=== PATIENT | male | born 1955 | race Caucasian/White ===

== ENCOUNTER 2020-01-30 17:28 | Inpatient (IN) | payer MEDICAID, OTHER ==
[~2020-01-30] VITALS: Ht 172.7 cm; Wt 105.7 kg
[2020-01-30] MEDS ORDERED: ACETAMINOPHEN 325 MG TAB PO ONE (18:00)
[2020-01-30] MEDS ORDERED: SODIUM CHLORIDE 0.9% 1,000 ML IVB ONE (18:01)
[2020-01-30] MEDS ORDERED: CLINDAMYCIN 600MG IV 50 ML IV ONE (18:15)
[2020-01-30] MEDS ORDERED: SODIUM CHLORIDE 0.9% 1,000 ML IV ONE ×2 (18:15→20:05)
[2020-01-30 19:01] LABS: Basophils # (auto) 0 10 ^3/uL (0-0.2); Basophils % (auto) 0.2 % (0.0-2.0); Eosinophils # (auto) 0 10 ^3/uL (0-0.8); Eosinophils % (auto) 0.3 % (0.0-7.0); Hematocrit 31.1 % (41.0-53.0); Hemoglobin 10.2 g/dL (13.5-17.5); Lymphocytes # (auto) 1.1 10 ^3/uL (0.4-5.4); Lymphocytes % (auto) 6.8 % (10.0-50.0); Mean Corpuscular Hemoglobin 29.2 pg (28.0-32.0); Mean Corpuscular Hgb Conc. 32.6 g/dL (32.0-36.0); Mean Corpuscular Volume 89.7 fL (80.0-100.0); Monocytes # (auto) 0.7 10 ^3/uL (0-1.3); Monocytes % (auto) 4.7 % (0.0-12.0); Platelet Count (auto) 399 10^3/uL (140-450); Red Blood Cells 3.47 10^6/uL (4.5-5.90); Red Cell Distribution Width 14.9 % (11.8-14.3); White Blood Cell 15.9 10^3/uL (4.4-10.8)
[2020-01-30 19:17] LABS: BUN/Creatinine Ratio 24.1; INR 1.09 (0.9-1.15); Partial Thromboplastin Time 32.4 sec (23.0-31.2)
[2020-01-30 19:21] LABS: Bilirubin, Total 0.6 mg/dL (0.2-1.0); Calcium 8.2 mg/dL (8.5-10.1); Total Protein 8.4 g/dL (6.4-8.2)
[2020-01-30 19:46] LABS: Magnesium 0.7 mg/dL (1.6-2.6)
[2020-01-30] MEDS ORDERED: InsuLIN R (HUMAN) 100 UNITS in SODIUM CHL 0.9% 99 ML IV SCH (19:53)
[2020-01-30] MEDS ORDERED: SODIUM CHLORIDE 0.9% 1,000 ML IV SCH ×2 (19:53→23:53)
[2020-01-30] MEDS ORDERED: DEXTROSE (50%) 50ML SYRG IV PRN ×2 (20:00→20:15)
[2020-01-30] MEDS ORDERED: MAGNESIUM SULFATE 1GM/100ML 100 ML IV SCH (20:00)
[2020-01-30] MEDS ORDERED: LACTATED RINGER'S 1,000 ML IV ONE (20:00)
[2020-01-30] MEDS ORDERED: MAGNESIUM OXIDE 400 MG TAB PO ONE (20:00)
[2020-01-30] MEDS ORDERED: PIPERACILLIN-TAZOB 3.375GM 100 ML IV ONE (20:00)
[2020-01-30] MEDS ORDERED: cefTRIAXone 1GM/50ML D5W 50 ML IV ONE (20:00)
[2020-01-30] MEDS ORDERED: MORPHINE SULF INJ 2 MG/ML SYRINGE 1ML IV PRN (20:15)
[2020-01-30] MEDS ORDERED: NITROGLYCERIN 0.4 MG SL TAB SL PRN (20:15)
[2020-01-30] MEDS ORDERED: hydrALAZINE HCL 25 MG TAB PO ONE (20:15)
[2020-01-30] MEDS ORDERED: METOPROLOL SUCCINATE XL 50 MG TAB PO ONE (20:15)
[2020-01-30] MEDS ORDERED: VANCOMYCIN PER PHARMACY 0 MG IV SCH ×2 (20:30)
[2020-01-30] MEDS ORDERED: ACCU-CHEK COMFORT CURVE STRIP VI SCH (21:00)
[2020-01-30] MEDS: MAGNESIUM SULFATE 1GM/100ML 100 ML IV SCH ×2 (21:03→23:58)
[2020-01-30 21:32] LABS: INR 1.11 (0.9-1.15); Partial Thromboplastin Time 33.3 sec (23.0-31.2)
[2020-01-30] MEDS ORDERED: VANCOMYCIN 1GM/250ML 250 ML IV ONE (23:00)
[2020-01-30 23:12] LABS: Creatine Kinase IFCC 54 U/L (39-308)
[2020-01-30] MEDS: FAMOTIDINE (10MG/ML) 2ML VL IV SCH (23:58)
[2020-01-31] VITALS (7 sets, daily range): BP systolic 124–157; BP diastolic 49–78
[2020-01-31] MEDS ORDERED: hydrALAZINE HCL 25 MG TAB PO PRN
--- NOTE | 2020-01-31 00:45 | NUR ---
Telemetry admit from ER JOSE TREVIÑO admitted to Telemetry unit after SBAR received. Patient oriented to Grace Lopez, primary RN, unit, room, bed, and unit policies regarding patient care and visiting hours. Patient now on continuous telemetry monitoring, tele box # [id number] and telemetry reading on arrival to unit is . Patient placed on bedside oxygen, weighed by bedscale and encouraged to call if they need something. All questions and concerns addressed, patient verbalized understanding. Note:
[2020-01-31] MEDS: MAGNESIUM SULFATE 1GM/100ML 100 ML IV SCH ×2 (01:24→02:47)
[2020-01-31] MEDS: ACCU-CHEK COMFORT CURVE STRIP VI SCH ×5 (01:28→23:25)
[2020-01-31] MEDS ORDERED: SODIUM CHLORIDE 0.9% 1,000 ML IV SCH (01:53)
[2020-01-31] MEDS ORDERED: LORazepam 2MG/ML-1ML VIAL IV PRN (02:00)
[2020-01-31 02:15] LABS: BUN/Creatinine Ratio 21.8; Potassium 4.7 mmol/L (3.5-5.1)
[2020-01-31 02:22] LABS: Urine Bacteria FEW /hpf (None Seen); Urine Blood TRACE /uL (Negative); Urine Hyaline Cast FEW /lpf (0 - 2); Urine Mucus FEW (None Seen); Urine Specific Gravity 1.016 (1.001-1.035); Urine WBC 7 /hpf (0 - 3)
[2020-01-31 02:29] LABS: Calcium 8.2 mg/dL (8.5-10.1)
[2020-01-31] MEDS ORDERED: MAGNESIUM SULFATE 1GM/100ML 100 ML IV ONE (02:46)
[2020-01-31] MEDS ORDERED: NIFEdipine ER 30 MG TAB PO ONE (03:15)
[2020-01-31] MEDS ORDERED: LISINOPRIL 20 MG TAB PO ONE (03:15)
[2020-01-31] MEDS: SODIUM CHLORIDE 0.9% 1,000 ML IV SCH ×3 (03:49→23:15)
[2020-01-31] MEDS: PIPERACILLIN-TAZOB 3.375GM 100 ML IV SCH ×4 (05:15→17:46)
[2020-01-31] MEDS: InsuLIN REG 1unit/0.01ml Soln (100units/ml) SC SCH ×5 (05:44→23:26)
[2020-01-31 06:51] LABS: Basophils # (auto) 0 10 ^3/uL (0-0.2); Basophils % (auto) 0.2 % (0.0-2.0); Eosinophils # (auto) 0.1 10 ^3/uL (0-0.8); Eosinophils % (auto) 0.9 % (0.0-7.0); Hematocrit 31.8 % (41.0-53.0); Hemoglobin 9.9 g/dL (13.5-17.5); Lymphocytes # (auto) 1.6 10 ^3/uL (0.4-5.4); Lymphocytes % (auto) 10.4 % (10.0-50.0); Mean Corpuscular Hemoglobin 29.2 pg (28.0-32.0); Mean Corpuscular Hgb Conc. 31.1 g/dL (32.0-36.0); Mean Corpuscular Volume 93.8 fL (80.0-100.0); Monocytes % (auto) 6.4 % (0.0-12.0); Neutrophils # (auto) 12.8 10 ^3/uL (1.6-8.6); Neutrophils % (auto) 82.1 % (37.0-80.0); Platelet Count (auto) 410 10^3/uL (140-450); Red Blood Cells 3.39 10^6/uL (4.5-5.90); Red Cell Distribution Width 15.6 % (11.8-14.3); White Blood Cell 15.6 10^3/uL (4.4-10.8)
--- NOTE | 2020-01-31 07:00 | NUR ---
OPENING SHIFT NOTE RECEIVED REPORT ON THE PATIENT. AWAKE LYING IN BED. PATIENT SHOWS NO SIGNS OF DISTRESS AT THIS TIME. DISCUSSED THE PLAN OF CARE WITH THE PATIENT. BED IN LOWEST POSITION, SIDE RAILS UP X2, AND THE CALL LIGHT IS WITHIN REACH.
[2020-01-31 07:14] LABS: Potassium 4.4 mmol/L (3.5-5.1)
[2020-01-31 07:23] LABS: BUN/Creatinine Ratio 21.2; Calcium 8.3 mg/dL (8.5-10.1); Magnesium 3.3 mg/dL (1.6-2.6)
[2020-01-31] MEDS: VANCOMYCIN 1GM/250ML 250 ML IV SCH ×2 (10:30→23:23)
[2020-01-31] MEDS: FAMOTIDINE (10MG/ML) 2ML VL IV SCH ×2 (10:31→23:24)
[2020-01-31] MEDS: ASPirin 81 mg TAB PO SCH (10:31)
[2020-01-31] MEDS: ENOXAPARIN SOD 40 MG/0.4 ML SYRINGE SC SCH (10:31)
[2020-01-31] MEDS: MAGNESIUM OXIDE 400 MG TAB PO SCH ×2 (10:31→23:25)
[2020-01-31] MEDS: METOPROLOL TARTRATE 25 MG TAB PO SCH ×2 (10:31→23:25)
[2020-01-31 11:24] LABS: Cholesterol 124 mg/dL (< 200); HDL Cholesterol 20 mg/dL (40-59); LDL Cholesterol 71 mg/dL (< 100); Triglycerides 138 mg/dL (< 150)
--- NOTE | 2020-01-31 12:30 | NUR ---
WOUND CARE NOTE: IN TO SEE PATIENT AT THIS TIME PER WOUND CARE CONSULT REQUEST. PATIENT RECENTLY ADMITTED TO [facility] WITH DIAGNOSIS OF SEVERE SEPSIS, LLE GANGRENE, NON HEALING WOUNDS. CURRENT CHIN SCORE IS 17. WOUND PHOTOS TAKEN UPON ADMIT BY BEDSIDE NURSE FOR REFERENCE. PODIATRY CONSULT IS PENDING. PATIENT IS NOTED TO HAVE BLACK ESCHAR UNSTAGEABLE PRESSURE INJURIES TO BILATERAL HEELS, DFU TO THE LEFT PLANTAR FOOT, AND OBVIOUS WOUND INFECTION WITH ERYTHEMA NOTED TO LEFT ANKLE TO DORSAL AND PLANTAR SURFACE OF THE FOOT. NO OPEN WOUNDS NOTED. BOTH HEELS COVERED WITH BLACK ESCHAR, CALLOUSED PERIWOUND NOTED. DFU IS COVERED WITH BLACK ESCHAR, LEFT ANKLE HAS EARLY BLISTER FORMING. ENTIRE LEFT FOREFOOT IS EDEMATOUS, INDURATED, BRIGHT RED WITH OBVIOUS INFECTION. NO OTHER WOUND ISSUES NOTED AT THIS TIME. RECOMMEND: SKIN/WOUND CARE PLAN, FREQUENT TURN SCHEDULE Q 2 HOURS, PRN CONDITION PERMITS WITH PRESSURE REDISTRIBUTION USING PILLOWS/WEDGES, BID APPLICATIONS WITH BETADINE WASH TO BILATERAL HEEL ESCHAR WOUNDS, DIETARY CONSULT, CONTINUED MONITORING BY WOUND CARE TEAM. WILL DEFER ALL OTHER WOUND CARE ORDERS TO DR. HOGAN/CORE MAKER. Addendum: 01/31/20 at 1927 by Kristen Clancy RN Amended: Links added.
--- NOTE | 2020-01-31 12:56 | NUR ---
DR COTTO AT BEDSIDE. NEW ORDERS RECEIVED.
--- NOTE | 2020-01-31 13:00 | NUR ---
DR HOGAN AT BEDSIDE. NEW ORDERS RECEIVED.
[2020-01-31] MEDS ORDERED: DEXTROSE (50%) 50ML SYRG IV PRN (13:30)
[2020-01-31 14:45] LABS: BUN/Creatinine Ratio 21.8; Calcium 8.2 mg/dL (8.5-10.1); Potassium 3.9 mmol/L (3.5-5.1)
--- NOTE | 2020-01-31 15:58 | NUR ---
PATIENT DOWN TO MRI. NO SIGNS OF DISTRESS AT THIS TIME.
--- NOTE | 2020-01-31 19:35 | NUR ---
ENDORSED CARE TO ELLIOT GLROIA. PATIENT SHOWS NO SIGNS OF DISTRESS AT THIS TIME.
[2020-01-31] MEDS: ATORVASTATIN 20 MG TAB PO SCH (23:24)
[2020-02-01] MEDS: PIPERACILLIN-TAZOB 3.375GM 100 ML IV SCH ×5 (01:05→23:39)
[2020-02-01 05:00] VITALS: BP 140/60
[2020-02-01 06:10] LABS: Basophils # (auto) 0.1 10 ^3/uL (0-0.2); Basophils % (auto) 0.5 % (0.0-2.0); Eosinophils # (auto) 0.1 10 ^3/uL (0-0.8); Eosinophils % (auto) 1.1 % (0.0-7.0); Hemoglobin 9.3 g/dL (13.5-17.5); Lymphocytes # (auto) 1.1 10 ^3/uL (0.4-5.4); Lymphocytes % (auto) 9.3 % (10.0-50.0); Mean Corpuscular Hemoglobin 29.2 pg (28.0-32.0); Mean Corpuscular Hgb Conc. 32.2 g/dL (32.0-36.0); Mean Corpuscular Volume 90.5 fL (80.0-100.0); Monocytes # (auto) 0.7 10 ^3/uL (0-1.3); Monocytes % (auto) 5.9 % (0.0-12.0); Neutrophils # (auto) 10.2 10 ^3/uL (1.6-8.6); Neutrophils % (auto) 83.2 % (37.0-80.0); Platelet Count (auto) 393 10^3/uL (140-450); Red Cell Distribution Width 14.7 % (11.8-14.3); White Blood Cell 12.2 10^3/uL (4.4-10.8)
[2020-02-01 06:26] LABS: Albumin 1.6 g/dL (3.4-5.0)
[2020-02-01 06:32] LABS: BUN/Creatinine Ratio 21.8; Bilirubin, Total 0.7 mg/dL (0.2-1.0); Total Protein 7.7 g/dL (6.4-8.2)
[2020-02-01] MEDS: ACCU-CHEK COMFORT CURVE STRIP VI SCH ×4 (06:33→23:39)
[2020-02-01] MEDS: InsuLIN REG 1unit/0.01ml Soln (100units/ml) SC SCH ×5 (06:37→23:38)
[2020-02-01 08:36] VITALS: BP 146/71
--- NOTE | 2020-02-01 09:31 | NUR ---
DOMENICO CORE SHAPER AT BEDSIDE. NEW ORDERS RECEIVED. PER DOMENICO "FANOUS CAN INTERVENE FIRST BEFORE ANY CARDIO INTERVENTIONS. PATIENT IS CLEARED BY CARDIO".
[2020-02-01] MEDS: MAGNESIUM OXIDE 400 MG TAB PO SCH ×2 (10:00→22:43)
[2020-02-01] MEDS: SODIUM CHLORIDE 0.9% 1,000 ML IV SCH ×2 (10:15→19:15)
[2020-02-01] MEDS: FAMOTIDINE (10MG/ML) 2ML VL IV SCH ×2 (10:15→22:44)
[2020-02-01] MEDS: VANCOMYCIN 1GM/250ML 250 ML IV SCH ×2 (10:15→22:44)
[2020-02-01] MEDS: ASPirin 81 mg TAB PO SCH (10:16)
[2020-02-01] MEDS: METOPROLOL TARTRATE 25 MG TAB PO SCH ×2 (10:16→22:44)
[2020-02-01] MEDS: NIFEdipine ER 30 MG TAB PO SCH (10:20)
[2020-02-01] MEDS: LISINOPRIL 20 MG TAB PO SCH (10:21)
[2020-02-01] MEDS: ENOXAPARIN SOD 40 MG/0.4 ML SYRINGE SC SCH (10:21)
--- NOTE | 2020-02-01 11:55 | NUR ---
Nutrition Consult Consider MVI and Vitamin C 500 mg BID for wound healing Consider adding prostat 1pkt BID if alb continues to trend down Est energy needs 0758-5534 kcal (14-18 kcal/kg BW 106.4kg) Est protein needs 70-91g (1-1.3g/kg IBW 70kg) Will reassess prn. Addendum: 02/01/20 at [address] Amended: Links added.
[2020-02-01 13:00] VITALS: BP 137/74
--- NOTE | 2020-02-01 16:16 | NUR ---
DR COTTO AT BEDSIDE. NEW ORDERS RECEIVED.
[2020-02-01 17:00] VITALS: BP 129/70
--- NOTE | 2020-02-01 19:00 | NUR ---
Opening Shift Note Assumed care of patient, awake and alert. No S/S of distress/SOB or pain. Safety measures in place bed in lowest position, side rails up x2, fall alarm on, and call light within reach. Instructed on POC and to call for assist PRN, will continue to monitor for changes Q1hr and PRN.
[2020-02-01 21:50] VITALS: BP 145/72
[2020-02-01] MEDS: ATORVASTATIN 20 MG TAB PO SCH (22:44)
[2020-02-01] MEDS: INSULIN LANTUS (GLARGINE) 1 /0.01ml (100units/ml) SC SCH (22:53)
--- NOTE | 2020-02-01 23:05 | NUR ---
Received report from Gael Best, to assume the care.
--- NOTE | 2020-02-01 23:10 | NUR ---
Opening Shift Note Assumed care of patient, awake and alert. No S/S of distress/SOB or pain. Instructed on POC and to call for assist PRN, will continue to monitor for changes Q1hr and PRN.
--- NOTE | 2020-02-02 01:00 | NUR ---
Both side of the heels wash with Povidine swab and let it dry exposed to air.
[2020-02-02] MEDS: PIPERACILLIN-TAZOB 3.375GM 100 ML IV SCH ×3 (05:14→18:10)
[2020-02-02 05:27] VITALS: BP 132/63
[2020-02-02] MEDS: InsuLIN REG 1unit/0.01ml Soln (100units/ml) SC SCH ×4 (05:50→23:02)
[2020-02-02] MEDS: ACCU-CHEK COMFORT CURVE STRIP VI SCH ×3 (05:51→17:41)
[2020-02-02] MEDS: SODIUM CHLORIDE 0.9% 1,000 ML IV SCH ×2 (06:10→17:41)
[2020-02-02 07:15] LABS: Basophils # (auto) 0 10 ^3/uL (0-0.2); Basophils % (auto) 0.3 % (0.0-2.0); Eosinophils # (auto) 0.1 10 ^3/uL (0-0.8); Lymphocytes # (auto) 1.5 10 ^3/uL (0.4-5.4); Nucleated Red Blood Cells % 0.1 %; White Blood Cell 11.6 10^3/uL (4.4-10.8)
[2020-02-02 07:19] LABS: Hematocrit 27.3 % (41.0-53.0); Hemoglobin 9.1 g/dL (13.5-17.5); Lymphocytes % (auto) 13.2 % (10.0-50.0); Mean Corpuscular Hemoglobin 29.5 pg (28.0-32.0); Mean Corpuscular Hgb Conc. 33.3 g/dL (32.0-36.0); Mean Corpuscular Volume 88.7 fL (80.0-100.0); Monocytes # (auto) 0.8 10 ^3/uL (0-1.3); Neutrophils # (auto) 9.1 10 ^3/uL (1.6-8.6); Neutrophils % (auto) 78.5 % (37.0-80.0); Platelet Count (auto) 449 10^3/uL (140-450); Red Blood Cells 3.08 10^6/uL (4.5-5.90); Red Cell Distribution Width 14.5 % (11.8-14.3)
--- NOTE | 2020-02-02 07:30 | NUR ---
Opening Shift Note Assuming care of patient at this time. Patient is awake and alert. Patient denies pain. Patient shows no signs or symptoms of distress or shortness of breath. Bed is locked and lowered with side rails up x2. Instructed patient on the plan of care for today and to call for assistance as needed. Call light within reach. Will continue to round hourly and as needed.
[2020-02-02 07:32] LABS: Albumin 1.6 g/dL (3.4-5.0); Calcium 8.1 mg/dL (8.5-10.1); Potassium 3.6 mmol/L (3.5-5.1)
--- NOTE | 2020-02-02 07:32 | NUR ---
Care report given to David Stuart, bed alarm on, patient is resting no discomfort.
[2020-02-02 07:37] LABS: Bilirubin, Total 0.6 mg/dL (0.2-1.0); Total Protein 7.8 g/dL (6.4-8.2)
[2020-02-02 09:00] VITALS: BP 156/72
[2020-02-02] MEDS: MAGNESIUM OXIDE 400 MG TAB PO SCH ×2 (10:09→22:50)
[2020-02-02] MEDS: ASPirin 81 mg TAB PO SCH (10:10)
[2020-02-02] MEDS: NIFEdipine ER 30 MG TAB PO SCH (10:10)
[2020-02-02] MEDS: LISINOPRIL 20 MG TAB PO SCH (10:10)
[2020-02-02] MEDS: FAMOTIDINE (10MG/ML) 2ML VL IV SCH ×2 (10:11→22:48)
[2020-02-02] MEDS: METOPROLOL TARTRATE 25 MG TAB PO SCH ×2 (10:11→22:56)
[2020-02-02] MEDS: VANCOMYCIN 1GM/250ML 250 ML IV SCH ×2 (10:11→22:32)
[2020-02-02] MEDS: ENOXAPARIN SOD 40 MG/0.4 ML SYRINGE SC SCH (10:12)
[2020-02-02 13:00] VITALS: BP 156/70
[2020-02-02 17:07] VITALS: BP 142/64
--- NOTE | 2020-02-02 17:30 | NUR ---
Wound Care Wound Care done to patient's bilateral heels at this time. Bilateral heels irrigated with iodine, placed pads under. Heels left open to air.
--- NOTE | 2020-02-02 18:14 | NUR ---
Family Call Daughter updated on patient's status and plan of care at this time.
--- NOTE | 2020-02-02 18:20 | NUR ---
Debridement Spoke with Dr. Frederick. Debridement is scheduled for Tuesday. Will notify patient.
--- NOTE | 2020-02-02 19:23 | NUR ---
Closing Shift Note Patient resting in bed. No distress noted. Report given. Will endorse care to security shift supervisor RN.
--- NOTE | 2020-02-02 19:45 | NUR ---
1919 pt set off bed alarm trying to get urinal; requires assistance to stand. Warned to call if needs assistance. Pt VU and agreement. Voided 300ml. Pt repeatedly stating "there are a lot of people around here." Reminded he is in the hospital; he stated, "I know." States he has been in a hospital before. Now alarm sounded, RN found pt sitting on edge of bed with one leg OOB almost on floor. Pt states he was trying to get phone mud boss off floor. Phone mud boss not found at this time and not seen on floor. Pt stated he would "wait until morning" to look. Returned his leg to bed and covered himself this time. Bed alarm reset on.
[2020-02-02 22:00] VITALS: BP 149/70
[2020-02-02] MEDS: INSULIN LANTUS (GLARGINE) 1 /0.01ml (100units/ml) SC SCH (22:00)
[2020-02-02] MEDS: ATORVASTATIN 20 MG TAB PO SCH (22:50)
[2020-02-03 05:00] VITALS: BP 143/70
[2020-02-03] MEDS: PIPERACILLIN-TAZOB 3.375GM 100 ML IV SCH ×4 (05:44→17:34)
[2020-02-03] MEDS: InsuLIN REG 1unit/0.01ml Soln (100units/ml) SC SCH ×3 (06:00→17:34)
[2020-02-03] MEDS: ACCU-CHEK COMFORT CURVE STRIP VI SCH ×4 (06:00→17:34)
[2020-02-03 07:05] LABS: Basophils # (auto) 0 10 ^3/uL (0-0.2); Basophils % (auto) 0.5 % (0.0-2.0); Eosinophils # (auto) 0.1 10 ^3/uL (0-0.8); Eosinophils % (auto) 0.9 % (0.0-7.0); Hematocrit 28.7 % (41.0-53.0); Hemoglobin 9.1 g/dL (13.5-17.5); Lymphocytes # (auto) 1.6 10 ^3/uL (0.4-5.4); Lymphocytes % (auto) 14.9 % (10.0-50.0); Mean Corpuscular Hemoglobin 28.6 pg (28.0-32.0); Mean Corpuscular Hgb Conc. 31.9 g/dL (32.0-36.0); Mean Corpuscular Volume 89.7 fL (80.0-100.0); Monocytes # (auto) 0.8 10 ^3/uL (0-1.3); Monocytes % (auto) 7.4 % (0.0-12.0); Neutrophils % (auto) 76.3 % (37.0-80.0); Platelet Count (auto) 422 10^3/uL (140-450); Red Blood Cells 3.19 10^6/uL (4.5-5.90); Red Cell Distribution Width 14.6 % (11.8-14.3); White Blood Cell 10.5 10^3/uL (4.4-10.8)
[2020-02-03 07:28] LABS: Potassium 3.6 mmol/L (3.5-5.1)
--- NOTE | 2020-02-03 07:30 | NUR ---
Opening Shift Note Assumed care of patient, awake and alert. No S/S of distress/SOB or pain. Instructed on POC and to call for assist PRN, will continue to monitor for changes Q1hr and PRN. Fall precautions in place per safety protocol.
[2020-02-03 07:37] LABS: Albumin 1.7 g/dL (3.4-5.0); Bilirubin, Total 0.6 mg/dL (0.2-1.0); Calcium 8.2 mg/dL (8.5-10.1); Total Protein 8.1 g/dL (6.4-8.2)
[2020-02-03 09:00] VITALS: BP 138/68
[2020-02-03] MEDS: VANCOMYCIN 1GM/250ML 250 ML IV SCH (09:38)
[2020-02-03] MEDS: MAGNESIUM OXIDE 400 MG TAB PO SCH ×2 (09:39→21:53)
[2020-02-03] MEDS: METOPROLOL TARTRATE 25 MG TAB PO SCH ×2 (09:39→21:53)
[2020-02-03] MEDS: ASPirin 81 mg TAB PO SCH (09:39)
[2020-02-03] MEDS: FAMOTIDINE (10MG/ML) 2ML VL IV SCH ×2 (09:39→21:52)
[2020-02-03] MEDS: NIFEdipine ER 30 MG TAB PO SCH (09:40)
[2020-02-03] MEDS: LISINOPRIL 20 MG TAB PO SCH (09:40)
[2020-02-03] MEDS: ENOXAPARIN SOD 40 MG/0.4 ML SYRINGE SC SCH (09:40)
[2020-02-03] MEDS: SODIUM CHLORIDE 0.9% 1,000 ML IV SCH ×2 (11:15→21:52)
[2020-02-03 13:00] VITALS: BP 131/57
--- NOTE | 2020-02-03 16:30 | NUR ---
Podiatry MD Frederick at bedside, aware of patient status. Per MD Frederick, he will do an I&D tomorrow. House sup notified and time scheduled for procedure is 0830. Patient consents signed and placed in chart. Will cont to monitor patient. NPO after midnight.
[2020-02-03 17:00] VITALS: BP 145/71
[2020-02-03 18:07] VITALS: BP 137/66
--- NOTE | 2020-02-03 19:03 | NUR ---
Closing Note Endorsed care to night RN Lillie. Lillie aware of patient NPO after midnight and scheduled for I&D tomorrow@ 0830.
--- NOTE | 2020-02-03 19:10 | NUR ---
OPENING NOTE- NOC SHIFT PATIENT IS ALERT AND ORIENTED X4, ANSWERS IN COMPLETE SENTENCES AND MAKES APPROPRIATE EYE CONTACT. PATIENT IS TALKING ON HIS PERSONAL PHONE. PATIENT IS IN BED, BED IS LOCKED AT LOWEST POSITION, BED RAILS UP X2 AND HEAD OF BED IS UP >30 DEGREES. BEDSIDE TABLE WITHIN REACH, CALL LIGHT WITHIN REACH, PERSONAL BELONGINGS WITHIN REACH. DISCUSSED POC WITH PATIENT AND INSTRUCTED PATIENT TO CALL PRN; PATIENT VERBALIZED UNDERSTANDING. WILL CONTINUE TO MONITOR Q1H AND PRN.
[2020-02-03 19:27] LABS: INR 1.18 (0.9-1.15); Partial Thromboplastin Time 30.2 sec (23.0-31.2)
[2020-02-03] MEDS: ATORVASTATIN 20 MG TAB PO SCH (21:52)
[2020-02-03] MEDS: INSULIN LANTUS (GLARGINE) 1 /0.01ml (100units/ml) SC SCH (21:53)
[2020-02-03 22:00] VITALS: BP 135/68
--- NOTE | 2020-02-03 23:00 | NUR ---
COMPLETE BED LINEN CHANGE WITH ASSISTANCE OF SCAFFOLDER.
--- NOTE | 2020-02-03 23:00 | NUR ---
PATIENT UP TO COMMODE FOR BOWEL MOVEMENT. PATIENT REPORTS UPSET STOMACH, WILL CONTINUE TO MONITOR.
[2020-02-04] MEDS: PIPERACILLIN-TAZOB 3.375GM 100 ML IV SCH ×5 (00:29→23:57)
[2020-02-04] MEDS: ACCU-CHEK COMFORT CURVE STRIP VI SCH ×5 (00:30→23:57)
[2020-02-04] MEDS: VANCOMYCIN 1GM/250ML 250 ML IV SCH (02:21)
[2020-02-04 05:41] LABS: Basophils # (auto) 0 10 ^3/uL (0-0.2); Basophils % (auto) 0.4 % (0.0-2.0); Eosinophils # (auto) 0.1 10 ^3/uL (0-0.8); Eosinophils % (auto) 0.9 % (0.0-7.0); Hematocrit 28.7 % (41.0-53.0); Hemoglobin 9.2 g/dL (13.5-17.5); Lymphocytes # (auto) 1.7 10 ^3/uL (0.4-5.4); Lymphocytes % (auto) 15.3 % (10.0-50.0); Mean Corpuscular Hemoglobin 28.6 pg (28.0-32.0); Mean Corpuscular Hgb Conc. 31.9 g/dL (32.0-36.0); Mean Corpuscular Volume 89.8 fL (80.0-100.0); Monocytes # (auto) 0.7 10 ^3/uL (0-1.3); Monocytes % (auto) 6.2 % (0.0-12.0); Neutrophils # (auto) 8.4 10 ^3/uL (1.6-8.6); Neutrophils % (auto) 77.2 % (37.0-80.0); Platelet Count (auto) 413 10^3/uL (140-450); Red Cell Distribution Width 14.2 % (11.8-14.3); White Blood Cell 10.9 10^3/uL (4.4-10.8)
[2020-02-04 06:00] LABS: Calcium 8.1 mg/dL (8.5-10.1); Potassium 3.6 mmol/L (3.5-5.1)
[2020-02-04] MEDS: InsuLIN REG 1unit/0.01ml Soln (100units/ml) SC SCH ×5 (06:00→23:57)
[2020-02-04 06:03] LABS: BUN/Creatinine Ratio 7.9
[2020-02-04 06:16] VITALS: BP 140/76
[2020-02-04] MEDS: SODIUM CHLORIDE 0.9% 1,000 ML IV SCH ×2 (06:36→18:07)
--- NOTE | 2020-02-04 07:02 | NUR ---
CLOSING NOTE- NOC SHIFT PATIENT IS ALERT AND ORIENTED. PATIENT IS RESTING IN BED, NO S/SX OF DISTRESS, SOB OR PAIN. PATIENT IS AWARE HE IS NPO. WILL ENDORSE PATIENT CARE TO DAY SHIFT RN.
--- NOTE | 2020-02-04 07:30 | NUR ---
Opening Shift Note: Assumed care of patient, awake and alert. No S/S of distress/SOB or pain. Bed in lowest locked position, side rails up x 2, call light within reach.instructed to keep NPO for I&D procedure, Patient instructed on POC and to call for assist PRN,[id number] understanding, will continue to monitor for changes Q1hr and PRN
[2020-02-04 08:50] VITALS: BP 151/78
[2020-02-04] MEDS: MORPHINE SULFATE 4 MG/ML SYR/VIAL IV PRN (09:20)
--- NOTE | 2020-02-04 09:20 | NUR ---
PATIENT C/O PAIN,MNEDICATED WITH MSO4 2 MG IV SEE eMAR FOR DETAIL
[2020-02-04] MEDS: METOPROLOL TARTRATE 25 MG TAB PO SCH ×2 (09:36→21:52)
[2020-02-04] MEDS: FAMOTIDINE (10MG/ML) 2ML VL IV SCH ×2 (09:36→21:51)
[2020-02-04] MEDS: MAGNESIUM OXIDE 400 MG TAB PO SCH ×2 (09:37→21:52)
[2020-02-04] MEDS: NIFEdipine ER 30 MG TAB PO SCH (09:37)
[2020-02-04] MEDS: LISINOPRIL 20 MG TAB PO SCH (09:38)
[2020-02-04] MEDS: ENOXAPARIN SOD 40 MG/0.4 ML SYRINGE SC SCH (09:38)
[2020-02-04] MEDS: ASPirin 81 mg TAB PO SCH (09:39)
[2020-02-04] MEDS ORDERED: MIDAZOLAM HCL 1MG/1ML-2 ML VIAL ONE (10:55)
[2020-02-04] MEDS ORDERED: PROPOFOL 10 MG/ML 20 ML IV ONE (10:55)
[2020-02-04] MEDS ORDERED: fentaNYL CITRATE 100 MCG/2 ML VL ONE (10:55)
[2020-02-04] MEDS ORDERED: ONDANSETRON HCL 4 MG/2 ML VIAL ONE (10:55)
[2020-02-04] MEDS ORDERED: SODIUM CHLORIDE LOCK 10 ML ONE (10:55)
--- NOTE | 2020-02-04 12:10 | NUR ---
TO PACU [facility] VIA BED FOR I&D DEBRIDEMENT OF BILATERAL HEELS
[2020-02-04] MEDS ORDERED: ceFAZolin 1GM VL ONE (12:11)
[2020-02-04 12:58] VITALS: BP 146/72
--- NOTE | 2020-02-04 13:10 | NUR ---
RECEIVED REPORT FROM [facility] RECRUITING TEAM LEAD RE PATIENT STATUS AND CONTINUATION OF CARE
--- NOTE | 2020-02-04 13:50 | NUR ---
RECEIVED FROM PACU VIA BED S/P I&D AND DEBRIDEMENT OF BILATERAL HEELS,PATIENT AWAKE ALERT ORIENTED,NO DISTRESS,DRESSING TO BILATERAL HEELS/FOOT DRY AND INTACT,VITAL SIGNS TAKEN BP136/61,HR76,ROOM AIR SATURATION 96%,TEMPT 97.8,NEW IV START NOTED TO LEFT HAND.NO C/O PAIN AT THIS TIME.
[2020-02-04 16:50] VITALS: BP 163/61
--- NOTE | 2020-02-04 18:10 | NUR ---
RECEIVED A CALL FROM [facility] PHARMACIST,PATIENT CHANTALE THROUGH ,RECEIVED INSTRUCTION TO HOLD VANCOMYCIN DOSE,INFORMED ABOVE ANTIBIOTIC INFUSING,RECEIVED ORDER TO STOP AND DISCONTINUE.
--- NOTE | 2020-02-04 19:32 | NUR ---
STATUS UNCHANGED,REPORT GIVEN TO INCOMING NOC SHIFT RN
[2020-02-04] MEDS: ATORVASTATIN 20 MG TAB PO SCH (21:51)
[2020-02-04] MEDS: INSULIN LANTUS (GLARGINE) 1 /0.01ml (100units/ml) SC SCH (21:52)
[2020-02-04 22:00] VITALS: BP 153/64
[2020-02-04] MEDS ORDERED: VANCOMYCIN 1GM/250ML 250 ML IV SCH (23:00)
[2020-02-05] MEDS: SODIUM CHLORIDE 0.9% 1,000 ML IV SCH ×3 (04:18→22:34)
[2020-02-05] MEDS: MORPHINE SULFATE 4 MG/ML SYR/VIAL IV PRN ×2 (04:34→21:07)
[2020-02-05 05:30] VITALS: BP 130/70
[2020-02-05] MEDS: InsuLIN REG 1unit/0.01ml Soln (100units/ml) SC SCH ×3 (06:00→18:00)
[2020-02-05] MEDS: PIPERACILLIN-TAZOB 3.375GM 100 ML IV SCH ×3 (06:23→18:20)
[2020-02-05] MEDS: ACCU-CHEK COMFORT CURVE STRIP VI SCH ×3 (06:25→18:20)
[2020-02-05 06:51] LABS: Basophils # (auto) 0.1 10 ^3/uL (0-0.2); Basophils % (auto) 0.5 % (0.0-2.0); Eosinophils # (auto) 0.2 10 ^3/uL (0-0.8); Eosinophils % (auto) 1.3 % (0.0-7.0); Hematocrit 27.5 % (41.0-53.0); Hemoglobin 8.9 g/dL (13.5-17.5); Lymphocytes # (auto) 1.5 10 ^3/uL (0.4-5.4); Lymphocytes % (auto) 12.9 % (10.0-50.0); Mean Corpuscular Hemoglobin 29.2 pg (28.0-32.0); Mean Corpuscular Hgb Conc. 32.5 g/dL (32.0-36.0); Mean Corpuscular Volume 89.8 fL (80.0-100.0); Monocytes # (auto) 0.7 10 ^3/uL (0-1.3); Monocytes % (auto) 5.9 % (0.0-12.0); Neutrophils # (auto) 9.3 10 ^3/uL (1.6-8.6); Neutrophils % (auto) 79.4 % (37.0-80.0); Platelet Count (auto) 387 10^3/uL (140-450); Red Blood Cells 3.06 10^6/uL (4.5-5.90); Red Cell Distribution Width 14.3 % (11.8-14.3); White Blood Cell 11.7 10^3/uL (4.4-10.8)
[2020-02-05 07:13] LABS: Magnesium 2.4 mg/dL (1.6-2.6)
--- NOTE | 2020-02-05 07:30 | NUR ---
Opening Shift Note: Received report and assumed care of patient,asleep but arousable . No S/S of distress/SOB or pain.dressing to left and right foot dry and intact. Bed in lowest locked position, side rails up x 2, call light within reach. Patient instructed on POC and to call for assist PRN, will continue to monitor for changes Q1hr and PRN
[2020-02-05 08:53] VITALS: BP 153/69
[2020-02-05] MEDS: MAGNESIUM OXIDE 400 MG TAB PO SCH ×2 (10:01→22:34)
[2020-02-05] MEDS: FAMOTIDINE (10MG/ML) 2ML VL IV SCH ×2 (10:01→22:33)
[2020-02-05] MEDS: ASPirin 81 mg TAB PO SCH (10:02)
[2020-02-05] MEDS: ENOXAPARIN SOD 40 MG/0.4 ML SYRINGE SC SCH (10:02)
[2020-02-05] MEDS: NIFEdipine ER 30 MG TAB PO SCH (10:03)
[2020-02-05] MEDS: METOPROLOL TARTRATE 25 MG TAB PO SCH (10:04)
[2020-02-05] MEDS: LISINOPRIL 20 MG TAB PO SCH (10:04)
[2020-02-05] MEDS ORDERED: METOPROLOL TARTRATE 25 MG TAB PO ONE (10:15)
--- NOTE | 2020-02-05 12:17 | NUR ---
MD VISIT DR. COTTO HERE TO SEE AND EXAMINED PATIENT RECEIVED VERBAL ORDERS SEE ORDER WRITTEN
[2020-02-05 13:00] VITALS: BP 130/59
--- NOTE | 2020-02-05 14:09 | NUR ---
Nutrition Followup Note Wt 105.8kg Pt was with RN at time of rounds this morning. pt is s/p debridement of wound, pt was NPO for procedure. Pt with 100% po intake of 1 meal 02/04 per Rn note. Will continue to monitor po intake following procedure Est energy needs 7363-0622 kcal (14-18 kcal/kg BW 106.4kg) Est protein needs 70-91g (1-1.3g/kg IBW 70kg) Will reassess prn. Labs: Creat 1.43H, Alb 1.7L BM: pt with 1 BM 02/04 per Rn note Skin: Bs 18 mod risk, full details in patient care coordinator note PES: Obesity r/t caloric intake in excess of needs aeb pt with a BMI of 35.7kg/m2 Comments: 1) Continue to monitor po intake, labs, skin 2) refer pt to OPD on DC 3) Continue current plan of care Consider MVI and Vitamin C 500 mg BID for wound healing If alb continues to trend down consider prostat 1 pkt BID Expected Outcomes/Goals: 1) pt po intake >75% 2) pt to maintain wt while in hospital 3) f/u 3-5 days
[2020-02-05 17:00] VITALS: BP 130/61
--- NOTE | 2020-02-05 19:20 | NUR ---
OPENING NOTE- NOC SHIFT PATIENT IS RESTING IN BED, EYES CLOSED. BREATHS ARE EVEN AND UNLABORED NO S/SX OF DISTRESS, SOB OR PAIN. PATIENT ON CONTINUOUS SENIOR TECHNICAL SUPPORT ENGINEER. WILL CONTINUE TO MONITOR. CALL LIGHT WITHIN REACH, PERSONAL BELONGINGS WITHIN REACH.
[2020-02-05] MEDS: INSULIN LANTUS (GLARGINE) 1 /0.01ml (100units/ml) SC SCH (21:24)
[2020-02-05 22:00] VITALS: BP 153/70
[2020-02-05] MEDS: ATORVASTATIN 20 MG TAB PO SCH (22:33)
[2020-02-05] MEDS: METOPROLOL TARTRATE 50 MG TAB PO SCH (22:33)
[2020-02-05] MEDS: ACETYLCYSTEINE ORAL for CIN 20%(200MG/ML) 4ML PO SCH (22:34)
--- NOTE | 2020-02-05 22:34 | NUR ---
GAVE MUCOMYST MIXED WITH ORANGE JUICE AND WITH USE OF STRAW. PATIENT TOLERATED WELL AND DRANK ENTIRE ORDERED DOSE.
[2020-02-06] VITALS (7 sets, daily range): BP systolic 128–155; BP diastolic 63–77
[2020-02-06] MEDS: PIPERACILLIN-TAZOB 3.375GM 100 ML IV SCH ×5 (00:53→23:58)
[2020-02-06] MEDS: ACCU-CHEK COMFORT CURVE STRIP VI SCH ×5 (00:55→18:06)
[2020-02-06] MEDS: InsuLIN REG 1unit/0.01ml Soln (100units/ml) SC SCH ×4 (06:00→18:00)
[2020-02-06 06:56] LABS: Basophils # (auto) 0.1 10 ^3/uL (0-0.2); Basophils % (auto) 0.7 % (0.0-2.0); Eosinophils # (auto) 0.2 10 ^3/uL (0-0.8); Eosinophils % (auto) 1.7 % (0.0-7.0); Hematocrit 29.6 % (41.0-53.0); Hemoglobin 9.5 g/dL (13.5-17.5); Lymphocytes % (auto) 9.7 % (10.0-50.0); Mean Corpuscular Hemoglobin 28.8 pg (28.0-32.0); Mean Corpuscular Hgb Conc. 32.1 g/dL (32.0-36.0); Mean Corpuscular Volume 89.7 fL (80.0-100.0); Monocytes # (auto) 0.6 10 ^3/uL (0-1.3); Monocytes % (auto) 5.2 % (0.0-12.0); Neutrophils # (auto) 8.9 10 ^3/uL (1.6-8.6); Neutrophils % (auto) 82.7 % (37.0-80.0); Nucleated Red Blood Cells % 0.1 %; Platelet Count (auto) 360 10^3/uL (140-450); Red Cell Distribution Width 14.4 % (11.8-14.3); White Blood Cell 10.7 10^3/uL (4.4-10.8)
[2020-02-06 07:20] LABS: INR 1.29 (0.9-1.15); Partial Thromboplastin Time 30.5 sec (23.0-31.2)
[2020-02-06 07:28] LABS: Albumin 1.6 g/dL (3.4-5.0); BUN/Creatinine Ratio 7.1; Calcium 8.1 mg/dL (8.5-10.1); Potassium 3.9 mmol/L (3.5-5.1)
[2020-02-06 07:32] LABS: Bilirubin, Total 0.4 mg/dL (0.2-1.0); Total Protein 8.2 g/dL (6.4-8.2)
--- NOTE | 2020-02-06 08:00 | NUR ---
ASSESSMENT NOTE PT IS ALERT ORIENTED X4, RESTING IN BED COMFORTABLY, ABLE TO SELF REPOSITION AND VERBALIS HIS NEEDS, LARGE SOFT ABDOMEN NOTED, DRY CLEAN DRESSING NOTED ON BOTH LOWER EXTREMITIES, NPO, PAIN 0/10, CALL LIGHT WITHIN REACH
[2020-02-06] MEDS: METOPROLOL TARTRATE 50 MG TAB PO SCH ×2 (09:04→21:45)
[2020-02-06] MEDS: FAMOTIDINE (10MG/ML) 2ML VL IV SCH ×2 (09:04→21:43)
[2020-02-06] MEDS: NIFEdipine ER 30 MG TAB PO SCH (09:05)
[2020-02-06] MEDS: LISINOPRIL 20 MG TAB PO SCH (09:06)
[2020-02-06] MEDS: SODIUM CHLORIDE 0.9% 1,000 ML IV SCH ×2 (09:15→19:15)
[2020-02-06] MEDS: ENOXAPARIN SOD 40 MG/0.4 ML SYRINGE SC SCH (10:00)
[2020-02-06] MEDS: MAGNESIUM OXIDE 400 MG TAB PO SCH ×2 (10:00→21:44)
[2020-02-06] MEDS: ASPirin 81 mg TAB PO SCH (10:00)
[2020-02-06] MEDS: ACETYLCYSTEINE ORAL for CIN 20%(200MG/ML) 4ML PO SCH ×2 (10:00→21:44)
--- NOTE | 2020-02-06 10:40 | NUR ---
TRANSFER PT TO [facility]IA HOSPITAL BED, NO DISTRESS NOTED, PT ALERT ORIENTED X4, FULLY AWARE, MINGO RN AT BED SIDE
[2020-02-06] MEDS ORDERED: IODIXANOL 320MG/ML 100ML BTL IV ONE (12:33)
[2020-02-06] MEDS ORDERED: LIDOCAINE 2%HCL (LOCAL ANESTH.) INJ 20ML MDV ONE (12:33)
[2020-02-06] MEDS ORDERED: ANGIOMAX 250 MG VIAL IV ONE ×3 (12:41→14:19)
[2020-02-06] MEDS ORDERED: fentaNYL CITRATE 100 MCG/2 ML VL ONE ×2 (12:41→14:11)
[2020-02-06] MEDS ORDERED: SODIUM CHL 0.9% 50 ML ONE ×3 (12:42→14:19)
[2020-02-06] MEDS ORDERED: MIDAZOLAM HCL 1MG/1ML-2 ML VIAL ONE ×2 (12:42→14:11)
--- NOTE | 2020-02-06 15:55 | NUR ---
Received pt. awake and quiet, denies discomfort, oriented to person, place and event, respirations even and unlabored, RIGHT groin soft with dressing CDI, instructed re: importance of keeping RIGHT leg straight; states will comply, moves all extremities spontaneously, bilat. feet Kerlix gauze dressings intact, IV intact on LEFT hand; site benign, IV secured and dressing reinforced. instructed re: procedure outcome and plan of care; pt. verbalized understanding and is compliant. NAD noted. Addendum: 02/06/20 at 1619 by JASON VIEIRA RN Received in Visual Manager post-op
[2020-02-06] MEDS ORDERED: CLOPIDOGREL 300 MG TAB PO ONE (16:00)
--- NOTE | 2020-02-06 16:20 | NUR ---
RIGHT groin remains soft with dressing CDI, keeps RIGHT leg straight as insructed, remains stable and continues to deny discomfort.
--- NOTE | 2020-02-06 16:35 | NUR ---
PT IS BACK TO HIS ROOM VIA HOSPITAL BED, ALERT ORIENTED X4, WITH JASON RN , RT GROIN SOFT, NO SIGNS OF BLEEDING NOTED, PER JASON ZARATE PT DONE WITH THE LEFT LEG AND ON TUESDAY WILL DO THE RT LEG, PLAVIX 300 MG ALREADY GIVEN, PT TO STAY FLAT TILL 1750.
--- NOTE | 2020-02-06 16:40 | NUR ---
PT TRY TO SIT UP, REMINDED PT THAT HE HAVE TO STAY FLAT TILL 5:50 PM, PATINTS DAUGHTER CALLED MADE AWARE THAT HER FATHER NEED TO BE COMPLYING TO BE FLAT IN BED, EXPLAIN TO HER WHY, SAID THAT SHE WILL GOING TO CALL HER FATHER
--- NOTE | 2020-02-06 16:43 | NUR ---
RIGHT groin unchanged, pt. transferred in stable condition back to room via bed, pt. endorsed to ELLIOT Doe.
--- NOTE | 2020-02-06 18:18 | NUR ---
PT CONTINUE STABLE, NO SIGNS OF BLEEDING NOTED, CONTINUE MONITORING
--- NOTE | 2020-02-06 18:30 | NUR ---
PT IS SITTING UP EATING DINNER, NO DISTRESS NOTED
--- NOTE | 2020-02-06 19:35 | NUR ---
Opening Shift Note Assumed patient care from Brook RN. Patient is AOx4 w/ HOB at 30 degrees. Patient has no s/s of distress or SOB, no pain is noted. Discussed plan of care w/ patient and all questions answered. Bed locked in lowest position and call light is within reach. Will continue to monitor.
[2020-02-06] MEDS ORDERED: VANCOMYCIN 500 MG in D5W 5% 100 ML IV ONE (20:00)
[2020-02-06] MEDS: ATORVASTATIN 20 MG TAB PO SCH (21:44)
[2020-02-06] MEDS: INSULIN LANTUS (GLARGINE) 1 /0.01ml (100units/ml) SC SCH (21:55)
[2020-02-07] MEDS: SODIUM CHLORIDE 0.9% 1,000 ML IV SCH ×2 (04:48→15:27)
[2020-02-07 04:55] VITALS: BP 139/70
[2020-02-07] MEDS: PIPERACILLIN-TAZOB 3.375GM 100 ML IV SCH ×3 (05:34→18:29)
[2020-02-07] MEDS: ACCU-CHEK COMFORT CURVE STRIP VI SCH ×4 (05:41→18:29)
[2020-02-07] MEDS: InsuLIN REG 1unit/0.01ml Soln (100units/ml) SC SCH ×4 (05:44→18:00)
[2020-02-07 06:11] LABS: Basophils # (auto) 0.1 10 ^3/uL (0-0.2); Basophils % (auto) 0.7 % (0.0-2.0); Eosinophils # (auto) 0.2 10 ^3/uL (0-0.8); Eosinophils % (auto) 2.2 % (0.0-7.0); Hemoglobin 8.8 g/dL (13.5-17.5); Lymphocytes # (auto) 1.2 10 ^3/uL (0.4-5.4); Lymphocytes % (auto) 13.3 % (10.0-50.0); Mean Corpuscular Hemoglobin 29.3 pg (28.0-32.0); Mean Corpuscular Hgb Conc. 32.6 g/dL (32.0-36.0); Mean Corpuscular Volume 89.6 fL (80.0-100.0); Monocytes # (auto) 0.7 10 ^3/uL (0-1.3); Monocytes % (auto) 7.3 % (0.0-12.0); Neutrophils # (auto) 7.2 10 ^3/uL (1.6-8.6); Neutrophils % (auto) 76.5 % (37.0-80.0); Platelet Count (auto) 328 10^3/uL (140-450); Red Blood Cells 3.02 10^6/uL (4.5-5.90); Red Cell Distribution Width 14.3 % (11.8-14.3); White Blood Cell 9.4 10^3/uL (4.4-10.8)
[2020-02-07 06:28] LABS: Albumin 1.7 g/dL (3.4-5.0); Calcium 8.2 mg/dL (8.5-10.1); Potassium 4.1 mmol/L (3.5-5.1)
[2020-02-07 06:32] LABS: Bilirubin, Total 0.4 mg/dL (0.2-1.0); Total Protein 8.1 g/dL (6.4-8.2)
[2020-02-07 06:56] LABS: BUN/Creatinine Ratio 8.3
--- NOTE | 2020-02-07 07:40 | NUR ---
Opening Shift Note Assumed care of patient, awake and alert. No S/S of distress/SOB, reports pain to bilat feet and legs, states he will let me know if he requires pain medication . Instructed on POC and to call for assist PRN, will continue to monitor for changes Q1hr and PRN.
[2020-02-07 09:00] VITALS: BP 147/66
[2020-02-07] MEDS: FAMOTIDINE (10MG/ML) 2ML VL IV SCH ×2 (10:20→21:36)
[2020-02-07] MEDS: METOPROLOL TARTRATE 50 MG TAB PO SCH ×2 (10:21→21:37)
[2020-02-07] MEDS: ASPirin 81 mg TAB PO SCH (10:21)
[2020-02-07] MEDS: MAGNESIUM OXIDE 400 MG TAB PO SCH ×2 (10:21→21:37)
[2020-02-07] MEDS: CLOPIDOGREL BISULFATE 75 MG TAB PO SCH (10:21)
[2020-02-07] MEDS: NIFEdipine ER 30 MG TAB PO SCH (10:23)
[2020-02-07] MEDS: LISINOPRIL 20 MG TAB PO SCH (10:24)
--- NOTE | 2020-02-07 11:06 | NUR ---
Assessment Patient is a 64-year-old male who is alert and oriented. Prior to admission patient lived home with his Alayna and functioned independently. Patient informed me he can care for his own ADLs. Patient informed me he has a walker, wheelchair and cane for home use. Advised patient there is a social service consult for SNF placement for wound care, IV abx and physical therapy. Patient does not want to go to a [facility] nursing facility stating he has good family support and would like to return home upon discharge with home health services. Informed patient I will notify bedside nurse. Informed Patient he has the right to participate in all discharge planning. Patient verbalized understanding discharge plan. Informed ELLIOT Li. Addendum: 02/07/20 at 1108 by JULIO C PIZARRO Amended: Links added.
--- NOTE | 2020-02-07 11:52 | NUR ---
WOUND CARE NOTE: Wound care in to see patient for reevaluation of bilateral foot/heel wounds. Patient continue resting in bed in Rm. 276B. Patient is awake, alert and oriented. He's able to move, transfer self to bedside commode, able to turn and reposition self. His Yoseph score is 18. Skin/wound assessment done with the assistance of another nurse, ELLIOT Johnson. No wound noted on patient's sacral and back. Patient is three days s/p I&D of abscess L medial ankle and Excisional Debridement of ulceration to medial Lt heel and lateral Rt heel by Dr. Frederick. MD placed EOD dressing change to bilateral foot wounds. Cleansed wounds with wound cleanser,patted dry with gauze. Changed wound packing to L medial ankle wound, covered wounds with layers of 4x4's gauze and wrapped with Kerlix. New photograph of wounds are taken for reference. All wound stats can be found in [facility] nurse intervention, wound assessment part. Patient tolerated well, elevated BLE on pillows. RECOMMENDATION: Nursing to continue with EOD dressing change per MD order, continue with skin/wound plan of care, continue monitoring by wound care while patient is hospitalized. Addendum: 02/07/20 at 1612 by Melly Grider RN Amended: Links added.
[2020-02-07 13:00] VITALS: BP 146/69
[2020-02-07] MEDS: MORPHINE SULFATE 4 MG/ML SYR/VIAL IV PRN (13:40)
[2020-02-07] MEDS: VANCOMYCIN 500 MG in D5W 5% 100 ML IV SCH (15:26)
[2020-02-07 17:00] VITALS: BP 142/74
--- NOTE | 2020-02-07 19:15 | NUR ---
Opening Shift Note Assumed care of patient, awake, alert, and oriented x 4. No S/S of respiratory distress and/or pain noted or reported. Bed in lowest locked position, side rails x 2 up, call light is within reach. Instructed on POC and to call for assistance as needed. Will continue to monitor for changes Q1hr and PRN.
[2020-02-07 20:00] VITALS: BP 144/77
[2020-02-07] MEDS: ACETAMINOPHEN 325 MG TAB PO PRN (20:10)
[2020-02-07] MEDS: ATORVASTATIN 20 MG TAB PO SCH (21:37)
[2020-02-07 21:38] VITALS: BP 144/77
[2020-02-07] MEDS: INSULIN LANTUS (GLARGINE) 1 /0.01ml (100units/ml) SC SCH (21:41)
[2020-02-08] MEDS: ACCU-CHEK COMFORT CURVE STRIP VI SCH ×5 (00:09→23:50)
[2020-02-08] MEDS: PIPERACILLIN-TAZOB 3.375GM 100 ML IV SCH ×5 (00:09→23:50)
[2020-02-08] MEDS: SODIUM CHLORIDE 0.9% 1,000 ML IV SCH ×3 (02:27→21:39)
[2020-02-08 05:00] VITALS: BP 140/70
[2020-02-08] MEDS: InsuLIN REG 1unit/0.01ml Soln (100units/ml) SC SCH ×5 (05:49→23:58)
[2020-02-08] MEDS: ACETAMINOPHEN 325 MG TAB PO PRN (06:06)
[2020-02-08 06:54] LABS: Basophils # (auto) 0 10 ^3/uL (0-0.2); Basophils % (auto) 0.4 % (0.0-2.0); Eosinophils # (auto) 0.2 10 ^3/uL (0-0.8); Eosinophils % (auto) 2.5 % (0.0-7.0); Hematocrit 26.2 % (41.0-53.0); Hemoglobin 8.6 g/dL (13.5-17.5); Lymphocytes # (auto) 1.3 10 ^3/uL (0.4-5.4); Lymphocytes % (auto) 15.8 % (10.0-50.0); Mean Corpuscular Hemoglobin 29.2 pg (28.0-32.0); Mean Corpuscular Volume 88.6 fL (80.0-100.0); Monocytes # (auto) 0.6 10 ^3/uL (0-1.3); Monocytes % (auto) 7.1 % (0.0-12.0); Neutrophils # (auto) 6.2 10 ^3/uL (1.6-8.6); Neutrophils % (auto) 74.2 % (37.0-80.0); Platelet Count (auto) 289 10^3/uL (140-450); Red Blood Cells 2.96 10^6/uL (4.5-5.90); White Blood Cell 8.3 10^3/uL (4.4-10.8)
[2020-02-08 07:08] LABS: BUN/Creatinine Ratio 7.1; Calcium 7.7 mg/dL (8.5-10.1); Magnesium 1.7 mg/dL (1.6-2.6); Potassium 3.5 mmol/L (3.5-5.1)
[2020-02-08 07:18] LABS: INR 1.34 (0.9-1.15); Partial Thromboplastin Time 31.9 sec (23.0-31.2)
--- NOTE | 2020-02-08 07:18 | NUR ---
Opening Shift Note Assumed care of patient, awake and alert. No S/S of distress/SOB or pain. Npo for surgery. Instructed on POC and to call for assist PRN, will continue to monitor for changes Q1hr and PRN.
[2020-02-08 09:13] VITALS: BP 156/79
[2020-02-08] MEDS: FAMOTIDINE (10MG/ML) 2ML VL IV SCH ×2 (09:59→21:55)
--- NOTE | 2020-02-08 11:29 | NUR ---
I spoke with nurse Li regarding the plan of care for this patient. I spoke with charge nurse Erik and asked her to place order social service consult for the home IV ATB so we can start working on it-I let her know that the order has to state medication along with dosage/frequency/duration. I also asked her to get home health order for IV ATB as well as wound care-and to specify in order exactly what kind of dressing change is needed.
--- NOTE | 2020-02-08 12:26 | NUR ---
Nutrition Followup Note Wt 106.5 kg Pt was awake at time of rounds this morning. Pt is NPO for procedure. Prior to pt NPO status, pt with a CCHO 45g diet, appetite was poor aeb ave 37% PO intake over 3 meals per RN note. Encouraged pt to increase PO intake. Est energy needs 7602-6987 kcal (14-18 kcal/kg BW 106.4kg) Est protein needs 70-91g (1-1.3g/kg IBW 70kg) Will reassess prn. Labs: Creat 1.41 H, GFR 54 L, Alb 1.7 L BM: Pt with 1 BM 02/07 per Rn note Skin: Bs 18 mod risk, full details in pet caregiver note PES: Obesity r/t caloric intake in excess of needs aeb pt with a BMI of 35.7kg/m2 Comments: 1) Continue to monitor po intake, labs, skin 2) refer pt to OPD on DC 3) Continue current plan of care Consider MVI and Vitamin C 500 mg BID for wound healing If alb continues to trend down consider prostat 1 pkt BID
[2020-02-08] MEDS ORDERED: fentaNYL CITRATE 100 MCG/2 ML VL ONE (12:28)
[2020-02-08] MEDS ORDERED: LIDOCAINE 2%HCL (LOCAL ANESTH.) INJ 20ML MDV ONE (12:29)
[2020-02-08] MEDS ORDERED: SODIUM CHL 0.9% 50 ML ONE ×2 (12:29→14:09)
[2020-02-08] MEDS ORDERED: IODIXANOL 320MG/ML 100ML BTL IV ONE (12:29)
[2020-02-08] MEDS ORDERED: MIDAZOLAM HCL 1MG/1ML-2 ML VIAL ONE (12:29)
[2020-02-08 12:30] VITALS: BP 159/75
[2020-02-08] MEDS ORDERED: ANGIOMAX 250 MG VIAL IV ONE ×2 (12:41→14:08)
[2020-02-08] MEDS ORDERED: NITROGLYCERIN 0.4MG/DOSE SPRAY 4.9GM ONE (12:48)
--- NOTE | 2020-02-08 13:00 | NUR ---
D/C Planning Per consult for home health IV abx, wound care and nurse aide. Faxed clinical information to [facility] and [facility]. Per Kelle with [facility] patient has been accepted and will be seen upon d/c day. Patient will be able to assist with the IV abx. NERISSA Escobedo will be working on the IV abx.
[2020-02-08] MEDS ORDERED: ENALAPRILAT 1.25 MG/ML-1ML VIAL IV ONE (13:42)
--- NOTE | 2020-02-08 14:45 | NUR ---
Patient brought to recovery via bed, report received from Vaibhav RN and Louie RN. Patient is AO x 4 no s/s of distress, breaths are even and unlabored. Bed is currently in flat supine position, patient verbalized understanding to post-procedure care and flat time. Left groin site is benign, dressing in place CDI no s/s of bleeding or hematoma formation. Positive circulation noted to BLE. Patient denies pain at this time.
--- NOTE | 2020-02-08 14:59 | NUR ---
I faxed home IV ATB order to [facility].
--- NOTE | 2020-02-08 15:15 | NUR ---
Note: Telephone report given to ELLIOT Li. Pt remains stable, denies pain, and left groin remains benign.
--- NOTE | 2020-02-08 15:37 | NUR ---
PATIENT RETURNED FROM CHIEF EXECUTIVE, VS STABLE, REPORTS MODERATE PAIN TO BILAT FEET, LT GROIN CDI, NO SWELLING OR BLEEDING NOTED, PATIENT LAYING FLAT, WILL CONTINUE TO MONITOR.
[2020-02-08] MEDS: NIFEdipine ER 30 MG TAB PO SCH (15:49)
[2020-02-08] MEDS: LISINOPRIL 20 MG TAB PO SCH (15:49)
[2020-02-08] MEDS: CLOPIDOGREL BISULFATE 75 MG TAB PO SCH (15:49)
[2020-02-08] MEDS: METOPROLOL TARTRATE 50 MG TAB PO SCH ×2 (15:50→21:56)
[2020-02-08] MEDS: ASPirin 81 mg TAB PO SCH (15:50)
[2020-02-08] MEDS: MAGNESIUM OXIDE 400 MG TAB PO SCH ×2 (15:50→21:56)
[2020-02-08] MEDS: VANCOMYCIN 500 MG in D5W 5% 100 ML IV SCH (15:51)
--- NOTE | 2020-02-08 16:27 | NUR ---
Report given to freddie rn, patient informed.
--- NOTE | 2020-02-08 16:35 | NUR ---
I faxed flush order to [facility].
--- NOTE | 2020-02-08 17:24 | NUR ---
Midline on the right upper arm inserted by PICC Line RN.
[2020-02-08 17:26] VITALS: BP 159/78
--- NOTE | 2020-02-08 17:29 | NUR ---
Midline Placement: Patient educated on need for midline placement. All risks and benefits explained and all questions and concerns addresses prior to procedure. 18g/10cm midline inserted via right cephalic vein using Ultrasound. Sterile technique utilized. Blood return obtained from lumen and flushed easily with NS using proper technique. Midline secured with saline lock; biodisc and occlusive dressing applied. Primary RN notified. Midline lot #[id number]
[2020-02-08 20:00] VITALS: BP 154/74
[2020-02-08] MEDS: ATORVASTATIN 20 MG TAB PO SCH (21:55)
[2020-02-08] MEDS: INSULIN LANTUS (GLARGINE) 1 /0.01ml (100units/ml) SC SCH (21:59)
[2020-02-08 22:00] VITALS: BP 154/74
[2020-02-09] MEDS: ACETAMINOPHEN 325 MG TAB PO PRN ×2 (03:19→10:18)
[2020-02-09 05:00] VITALS: BP 134/68
[2020-02-09 05:42] LABS: BUN/Creatinine Ratio 7.4; Calcium 7.8 mg/dL (8.5-10.1); Potassium 3.6 mmol/L (3.5-5.1)
[2020-02-09] MEDS: InsuLIN REG 1unit/0.01ml Soln (100units/ml) SC SCH ×2 (05:57→11:41)
[2020-02-09] MEDS: ACCU-CHEK COMFORT CURVE STRIP VI SCH ×2 (05:57→11:40)
[2020-02-09] MEDS: PIPERACILLIN-TAZOB 3.375GM 100 ML IV SCH ×2 (05:57→11:40)
[2020-02-09] MEDS: SODIUM CHLORIDE 0.9% 1,000 ML IV SCH ×2 (07:15→17:15)
--- NOTE | 2020-02-09 07:45 | NUR ---
Opening Shift Note: Assumed care of patient, awake and alert. No S/S of distress/SOB or pain. Bed in lowest locked position, side rails up x 2, call light within reach. Patient instructed on POC and to call for assistance PRN, will continue to monitor for changes Q1hr and PRN.
[2020-02-09 08:45] VITALS: BP 156/74
[2020-02-09] MEDS: ASPirin 81 mg TAB PO SCH (09:30)
[2020-02-09] MEDS: CLOPIDOGREL BISULFATE 75 MG TAB PO SCH (09:30)
[2020-02-09] MEDS: FAMOTIDINE (10MG/ML) 2ML VL IV SCH (09:30)
[2020-02-09] MEDS: MAGNESIUM OXIDE 400 MG TAB PO SCH (09:30)
[2020-02-09] MEDS: LISINOPRIL 20 MG TAB PO SCH (09:31)
[2020-02-09] MEDS: NIFEdipine ER 30 MG TAB PO SCH (09:31)
[2020-02-09] MEDS: METOPROLOL TARTRATE 50 MG TAB PO SCH (09:32)
--- NOTE | 2020-02-09 10:00 | NUR ---
FAMILY UPDATED: Spoke with daughter, family updated on POC.
[2020-02-09 13:01] VITALS: BP 146/77
--- NOTE | 2020-02-09 13:12 | NUR ---
WOUND CARE PERFORMED. DISCHARGE WOUND PHOTOS TAKEN.
--- NOTE | 2020-02-09 13:31 | NUR ---
DR. PAULSON: Dr. Oneal at bedside. Discussed POC with patient. Per Dr. Oneal "give 1500 dose of vanco, then discharge."
[2020-02-09] MEDS: VANCOMYCIN 500 MG in D5W 5% 100 ML IV SCH (15:00)
[2020-02-09 16:12] VITALS: BP 146/73
[2020-02-09 16:39] VITALS: BP 128/68
--- NOTE | 2020-02-09 16:59 | NUR ---
MEDICATIONS Patient unable to get new medications filled due to pharmacy being closed. Patient educated to get medication filled as soon as possible. Patient verbally agreed.
--- NOTE | 2020-02-09 17:34 | NUR ---
Discharge instructions given as ordered. Encourage to follow up with PMD as instructed. All questions and concerns addressed. Patient verbalized understanding. Medication reconciliation form completed and copy given to patient. IV removed with catheter intact, pressure dressing applied. Per MD orders patient to be discharged with right upper arm midline. Telemetry unit returned to ICU. Patient taken to vehicle via wheelchair with all personal belongings, accompanied by staff. No distress noted at time of departure.
== END 2020-02-09 17:34 | disposition home health service (06) | DRG 710 ==
LOC: ER 17:28 → EDBD 17:28 → TELE 17:29 → TELE-WESTW 23:29
PROVIDERS: ADMIT Hospitalist; ATTEND Internal Medicine
PROC: 0JBR0ZZ Excision of Left Foot Subcutaneous Tissue and Fascia, Open Approach (ICD-10-PCS; 2020-02-04)
PROC: 0JBQ0ZZ Excision of Right Foot Subcutaneous Tissue and Fascia, Open Approach (ICD-10-PCS; 2020-02-04)
PROC: 0Y9L0ZZ Drainage of Left Ankle Region, Open Approach (ICD-10-PCS; 2020-02-04)
PROC: 047Q3ZZ Dilation of Left Anterior Tibial Artery, Percutaneous Approach (ICD-10-PCS; 2020-02-06)
PROC: 047S3ZZ Dilation of Left Posterior Tibial Artery, Percutaneous Approach (ICD-10-PCS; 2020-02-06)
PROC: B41G1ZZ Fluoroscopy of Left Lower Extremity Arteries using Low Osmolar Contrast (ICD-10-PCS; 2020-02-06)
PROC: B41F1ZZ Fluoroscopy of Right Lower Extremity Arteries using Low Osmolar Contrast (ICD-10-PCS; 2020-02-06)
PROC: B41G1ZZ Fluoroscopy of Left Lower Extremity Arteries using Low Osmolar Contrast (ICD-10-PCS; principal; 2020-02-08)
PROC: 047P3ZZ Dilation of Right Anterior Tibial Artery, Percutaneous Approach (ICD-10-PCS; 2020-02-08)
PROC: 047R3ZZ Dilation of Right Posterior Tibial Artery, Percutaneous Approach (ICD-10-PCS; 2020-02-08)
PROC: B41F1ZZ Fluoroscopy of Right Lower Extremity Arteries using Low Osmolar Contrast (ICD-10-PCS; 2020-02-08)
DX: A41.9 Sepsis, unspecified organism (principal); N17.0 Acute kidney failure with tubular necrosis; E43 Unspecified severe protein-calorie malnutrition; R65.20 Severe sepsis without septic shock; E11.52 Type 2 diabetes mellitus with diabetic peripheral angiopathy with gangrene; I96 Gangrene, not elsewhere classified; E66.01 Morbid (severe) obesity due to excess calories; E78.5 Hyperlipidemia, unspecified; E87.1 Hypo-osmolality and hyponatremia; E11.621 Type 2 diabetes mellitus with foot ulcer; D63.8 Anemia in other chronic diseases classified elsewhere; E11.40 Type 2 diabetes mellitus with diabetic neuropathy, unspecified; E11.21 Type 2 diabetes mellitus with diabetic nephropathy; E83.42 Hypomagnesemia; I70.203 Unspecified atherosclerosis of native arteries of extremities, bilateral legs; B95.2 Enterococcus as the cause of diseases classified elsewhere; I99.8 Other disorder of circulatory system; I25.10 Atherosclerotic heart disease of native coronary artery without angina pectoris; L03.116 Cellulitis of left lower limb; E11.22 Type 2 diabetes mellitus with diabetic chronic kidney disease; M79.89 Other specified soft tissue disorders; I13.10 Hypertensive heart and chronic kidney disease without heart failure, with stage 1 through stage 4 chronic kidney disease, or unspecified chronic kidney disease; N18.9 Chronic kidney disease, unspecified; L97.419 Non-pressure chronic ulcer of right heel and midfoot with unspecified severity; L97.429 Non-pressure chronic ulcer of left heel and midfoot with unspecified severity; Z79.4 Long term (current) use of insulin; Z91.19 Patient's noncompliance with other medical treatment and regimen; Z82.3 Family history of stroke; Z82.49 Family history of ischemic heart disease and other diseases of the circulatory system; Z83.3 Family history of diabetes mellitus; Z68.35 Body mass index [BMI] 35.0-35.9, adult
CPT/HCPCS: 36415; 36600; 37228; 71045; 73630; 73721; 75716; 80048; 80053; 80061; 80202; 81001; 82550; 82565; 82805; 82962; 83036; 83605; 83735; 84484; 85025; 85379; 85610; 85730; 86850; 86900; 86901; 87040; 87070; 87075; 87077; 87086; 87186; 87205; 93005; 93306; 93926; 93970; 96365; 96366; 99152; 99153; 99291; C1769; G0378; J0690; J1815; J2250; J2405; J2543; J2704; J3490; J7060; Q9967

== ENCOUNTER 2020-02-28 12:49 | Inpatient (IN) | payer MEDICAID ==
[~2020-02-28] VITALS: Ht 170.2 cm; Wt 110.2 kg
[2020-02-28] MEDS ORDERED: SODIUM CHLORIDE 0.9% 500 ML IV ONE (13:30)
[2020-02-28 14:18] LABS: Eosinophils # (auto) 0.5 10 ^3/uL (0-0.8); Hematocrit 25.3 % (41.0-53.0); Hemoglobin 8.2 g/dL (13.5-17.5); Monocytes # (auto) 0.5 10 ^3/uL (0-1.3); Neutrophils # (auto) 6.2 10 ^3/uL (1.6-8.6)
[2020-02-28 14:19] LABS: Basophils # (auto) 0 10 ^3/uL (0-0.2); Basophils % (auto) 0.5 % (0.0-2.0); Lymphocytes # (auto) 1.6 10 ^3/uL (0.4-5.4); Lymphocytes % (auto) 18.1 % (10.0-50.0); Mean Corpuscular Hemoglobin 28.8 pg (28.0-32.0); Mean Corpuscular Hgb Conc. 32.3 g/dL (32.0-36.0); Mean Corpuscular Volume 89.1 fL (80.0-100.0); Monocytes % (auto) 5.5 % (0.0-12.0); Neutrophils % (auto) 69.9 % (37.0-80.0); Platelet Count (auto) 265 10^3/uL (140-450); Red Blood Cells 2.84 10^6/uL (4.5-5.90); Red Cell Distribution Width 15.4 % (11.8-14.3); White Blood Cell 8.9 10^3/uL (4.4-10.8)
[2020-02-28 14:21] LABS: Partial Thromboplastin Time 29.9 sec (23.0-31.2)
[2020-02-28 14:23] LABS: Albumin 2.7 g/dL (3.4-5.0); Calcium 8.7 mg/dL (8.5-10.1); Potassium 5.1 mmol/L (3.5-5.1)
[2020-02-28 14:29] LABS: BUN/Creatinine Ratio 10.7; Bilirubin, Total 0.3 mg/dL (0.2-1.0); Total Protein 8.7 g/dL (6.4-8.2)
[2020-02-28] MEDS ORDERED: MORPHINE SULF INJ 2 MG/ML SYRINGE 1ML IV PRN (16:15)
[2020-02-28] MEDS ORDERED: LORazepam 0.5 MG TAB PO PRN (16:15)
[2020-02-28] MEDS ORDERED: CLOPIDOGREL BISULFATE 75 MG TAB PO ONE (16:15)
[2020-02-28] MEDS ORDERED: NITROGLYCERIN 0.4 MG SL TAB SL PRN (16:15)
[2020-02-28] MEDS ORDERED: DOCUSATE CALCIUM 240 MG CAP PO PRN (16:15)
[2020-02-28] MEDS ORDERED: hydrALAZINE HCL 20 MG/ML VL IV PRN (16:15)
[2020-02-28] MEDS: SODIUM CHLORIDE 0.9% 1,000 ML IV SCH ×2 (16:58→19:07)
[2020-02-28] MEDS: levoFLOXacin 250MG 50 ML IV SCH (16:59)
[2020-02-28] MEDS ORDERED: levoFLOXacin 500MG 100 ML IV ONE (17:00)
[2020-02-28] MEDS: metFORMIN HYDROCHLORIDE 850 MG TAB PO SCH (19:09)
[2020-02-28] MEDS: LINEZOLID 600MG/300ML 300 ML IV SCH (19:10)
[2020-02-28] MEDS: METOPROLOL TARTRATE 50 MG TAB PO SCH (21:56)
[2020-02-28 22:00] VITALS: BP 150/79
[2020-02-28 22:34] VITALS: BP 150/79
[2020-02-29] MEDS ORDERED: METF-371 PO (00:32)
[2020-02-29] MEDS ORDERED: METO-158 PO (00:34)
[2020-02-29] MEDS ORDERED: CLOP75TA28 PO (00:34)
[2020-02-29] MEDS ORDERED: LISI-646 PO (00:34)
[2020-02-29] MEDS ORDERED: NIFE1TAB30 PO (00:34)
[2020-02-29 05:00] VITALS: BP 140/68
[2020-02-29 06:57] LABS: Albumin 2.4 g/dL (3.4-5.0); Basophils # (auto) 0.1 10 ^3/uL (0-0.2); Calcium 8.3 mg/dL (8.5-10.1); Eosinophils # (auto) 0.5 10 ^3/uL (0-0.8); Nucleated Red Blood Cells % 0.1 %; Potassium 4.8 mmol/L (3.5-5.1)
[2020-02-29 07:00] LABS: Eosinophils % (auto) 6.4 % (0.0-7.0); Hematocrit 22.9 % (41.0-53.0); Hemoglobin 7.7 g/dL (13.5-17.5); Lymphocytes # (auto) 1.5 10 ^3/uL (0.4-5.4); Lymphocytes % (auto) 20.1 % (10.0-50.0); Mean Corpuscular Hemoglobin 30.3 pg (28.0-32.0); Mean Corpuscular Hgb Conc. 33.6 g/dL (32.0-36.0); Mean Corpuscular Volume 90.1 fL (80.0-100.0); Monocytes # (auto) 0.4 10 ^3/uL (0-1.3); Monocytes % (auto) 5.8 % (0.0-12.0); Neutrophils # (auto) 4.9 10 ^3/uL (1.6-8.6); Neutrophils % (auto) 66.7 % (37.0-80.0); Platelet Count (auto) 246 10^3/uL (140-450); Red Blood Cells 2.54 10^6/uL (4.5-5.90); Red Cell Distribution Width 15.2 % (11.8-14.3); White Blood Cell 7.4 10^3/uL (4.4-10.8)
[2020-02-29 07:01] LABS: BUN/Creatinine Ratio 10.8; Bilirubin, Total 0.3 mg/dL (0.2-1.0); Total Protein 7.6 g/dL (6.4-8.2)
--- NOTE | 2020-02-29 07:42 | NUR ---
DR. HOGAN AT BEDSIDE. NEW WOUND CARE ORDERS RECEIVED AND CARRIED OUT.
[2020-02-29] MEDS: metFORMIN HYDROCHLORIDE 850 MG TAB PO SCH ×2 (08:59→18:15)
[2020-02-29] MEDS: levoFLOXacin 250MG 50 ML IV SCH (09:00)
[2020-02-29 09:05] VITALS: BP 139/67
[2020-02-29] MEDS ORDERED: LISINOPRIL 20 MG TAB PO SCH (10:00)
[2020-02-29] MEDS: METOPROLOL TARTRATE 50 MG TAB PO SCH ×2 (10:18→21:32)
[2020-02-29] MEDS: PANTOPRAZOLE 40 MG TAB PO SCH (10:18)
[2020-02-29] MEDS: LINEZOLID 600MG/300ML 300 ML IV SCH ×2 (10:19→21:32)
[2020-02-29] MEDS: NIFEdipine ER 30 MG TAB PO SCH (10:19)
--- NOTE | 2020-02-29 11:50 | NUR ---
WOUND CARE NOTE: IN TO SEE PATIENT PER WOUND CARE CONSULT REQUEST. PATIENT ADMITTED TO [facility] WITH DIAGNOSIS OF ANEMIA, R/L FOOT WOUNDS. CURRENT CHIN SCORE IS 19. PATIENT HAD WOUND PHOTOS TAKEN UPON ADMIT BY BEDSIDE NURSE FOR REFERENCE. DR. HOGAN WAS IN TO SEE PATIENT FOR DFU ULCERS TO BILATERAL FEET. PATIENT IS S/T I&D ABSCESS TO THE LFT ANKLE. DR. HOGAN HAS REQUESTED THAT PATIENT HAVE EOD/PRN DRESSING CHANGE TO OPEN WOUNDS OF LEFT FOOT. PATIENT HAS BLACK ESCHAR DFU TO LEFT PLANTAR FOOT. NO DRAINAGE NOTED. DFU ULCERS TO BILATERAL FEET. RIGHT HEEL WOUND COVERED WITH CALLOUS. LEFT FOOT IS OPEN, POST DEBRIDEMENT. LIGHT SEROUS DRAINAGE NOTED. COVERED WITH OPTIFOA AG DRESSING LEFT ANKLE WOUND NOTED TO HAVE SCANT PURULENT DRAINAGE NOTED. PACKED WITH 1/4 INCH IODOFORM DRESSING, LEAVING 1 INCH TAIL FROM WOUND. COVERED WITH OPTIFOAM AG. WRAPPED WOUNDS TO LEFT FOOT/HEEL WITH KERLIX WRAP, SECURING WITH TAPE. RECOMMEND: SKIN/WOUND CARE PLAN; DIETARY CONSULT, EOD/PRN DRESSING CHANGE TO LEFT FOOT WOUNDS, CONTINUED MONITORING BY WOUND CARE TEAM. Addendum: 02/29/20 at 1613 by Kristen Clancy RN Amended: Links added.
--- NOTE | 2020-02-29 12:18 | NUR ---
DR. COTTO AT BEDSIDE.
[2020-02-29 12:33] VITALS: BP 151/73
--- NOTE | 2020-02-29 14:06 | NUR ---
I faxed prior authorization form for PO Zyvox to [facility] pharmacy [phone] (phone number [phone]).
[2020-02-29 16:43] VITALS: BP 135/63
[2020-02-29] MEDS: SODIUM CHLORIDE 0.9% 1,000 ML IV SCH (18:15)
--- NOTE | 2020-02-29 19:55 | NUR ---
Opening Shift Note Assumed care of patient, awake and alert A/O x 4. No S/S of distress/SOB or pain. Bed lowered and locked call light in reach. Instructed on POC and to call for assist PRN, will continue to monitor for changes Q1hr and PRN.
[2020-02-29 22:00] VITALS: BP 158/78
--- NOTE | 2020-02-29 23:12 | NUR ---
Patient now reporting that he has had intermittent stomach cramps and nausea after eating oatmeal this morning. He states he ate very little of his dinner or lunch. Patient now is sitting at edge of bed reporting he feels something in his stomach he wants to vomit but can't. Patient has no nausea medications. I informed the patient that we have no medications ordered and that I can only call MD Oneal at night in the event of an emergency. Informed patient to call me if he starts vomiting of if nausea gets worse.
[2020-03-01] VITALS (14 sets, daily range): BP systolic 142–158; BP diastolic 60–77
[2020-03-01 05:55] LABS: Urine Bacteria FEW /hpf (None Seen); Urine Blood Negative /uL (Negative); Urine Hyaline Cast FEW /lpf (0 - 2); Urine Mucus FEW (None Seen); Urine WBC 2 /hpf (0 - 3)
--- NOTE | 2020-03-01 06:12 | NUR ---
Sterile PICC line dressing change performed. Patient and RNs wore masks throughout procedure. Patient tolerated well.
[2020-03-01] MEDS: ACETAMINOPHEN 500 MG TAB PO PRN ×2 (06:31→18:35)
[2020-03-01 06:35] LABS: Basophils # (auto) 0.1 10 ^3/uL (0-0.2); Eosinophils # (auto) 0.3 10 ^3/uL (0-0.8); Lymphocytes # (auto) 1.3 10 ^3/uL (0.4-5.4); White Blood Cell 7.6 10^3/uL (4.4-10.8)
[2020-03-01 06:37] LABS: Basophils % (auto) 1.1 % (0.0-2.0); Eosinophils % (auto) 3.6 % (0.0-7.0); Hematocrit 21.1 % (41.0-53.0); Lymphocytes % (auto) 17.7 % (10.0-50.0); Mean Corpuscular Hemoglobin 29.5 pg (28.0-32.0); Mean Corpuscular Hgb Conc. 33.1 g/dL (32.0-36.0); Mean Corpuscular Volume 89.1 fL (80.0-100.0); Monocytes # (auto) 0.4 10 ^3/uL (0-1.3); Monocytes % (auto) 5.5 % (0.0-12.0); Neutrophils # (auto) 5.5 10 ^3/uL (1.6-8.6); Neutrophils % (auto) 72.1 % (37.0-80.0); Platelet Count (auto) 223 10^3/uL (140-450); Red Blood Cells 2.37 10^6/uL (4.5-5.90); Red Cell Distribution Width 15.1 % (11.8-14.3)
[2020-03-01 06:53] LABS: Albumin 2.3 g/dL (3.4-5.0); Calcium 8.1 mg/dL (8.5-10.1); Potassium 4.4 mmol/L (3.5-5.1)
--- NOTE | 2020-03-01 06:55 | NUR ---
Spoke to MD Oneal and notified him of critically low hemoglobin value: 7.0. Orders received: 1) Transfuse 2 units of packed RBCs STAT, 2) Lasix 20 mg IV once after first transfusion.
[2020-03-01 06:56] LABS: BUN/Creatinine Ratio 7.8; Bilirubin, Total 0.4 mg/dL (0.2-1.0); Total Protein 7.2 g/dL (6.4-8.2)
[2020-03-01] MEDS ORDERED: FUROSEMIDE 20 MG/2 ML VIAL IV ONE (07:45)
[2020-03-01] MEDS: SODIUM CHLORIDE 0.9% 1,000 ML IV SCH ×2 (08:15→21:46)
[2020-03-01] MEDS: metFORMIN HYDROCHLORIDE 850 MG TAB PO SCH ×2 (09:25→18:00)
[2020-03-01] MEDS: PANTOPRAZOLE 40 MG TAB PO SCH (09:40)
[2020-03-01] MEDS: METOPROLOL TARTRATE 50 MG TAB PO SCH ×2 (09:42→21:45)
[2020-03-01] MEDS: NIFEdipine ER 30 MG TAB PO SCH (09:44)
--- NOTE | 2020-03-01 09:58 | NUR ---
I re-faxed prior authorization form for PO Zyvox to [facility] pharmacy.
[2020-03-01] MEDS: LINEZOLID 600MG/300ML 300 ML IV SCH ×2 (10:00→21:45)
--- NOTE | 2020-03-01 11:22 | NUR ---
Nutrition Consult Consider adding MVI and Vitamin C 500mg BID Est energy needs 1110-6429 kcal (14-18kcal/kg BW 111kg) Est protein needs 67-87g (1-1.3g/kg IBW 67kg) Will reassess prn. Addendum: 03/01/20 at [address] Amended: Links added.
--- NOTE | 2020-03-01 11:26 | NUR ---
Received call from Fanny Sims CM informing me PO ZYVOX has been approved. Fanny will be faxing nc confirmation form for patient record at [phone]
--- NOTE | 2020-03-01 11:28 | NUR ---
Received approval form for PO Zyvox-faxed a copy to nurse Ida to give to patient.
--- NOTE | 2020-03-01 17:51 | NUR ---
RE: PO ZYVOX Prescription called in to patients preferred pharmacy as per patients request at [facility] at [address] [place] [address]. Phone #:[phone]. Per pharmacy able to fill prescription but med not available until SATURDAY 03/03.
[2020-03-01] MEDS ORDERED: ONDANSETRON HCL 4 MG/2 ML VIAL IV PRN (18:00)
--- NOTE | 2020-03-01 18:25 | NUR ---
Daughter Vickie updated. Correct PW received.
[2020-03-01] MEDS: levoFLOXacin 500MG 100 ML IV SCH (18:35)
--- NOTE | 2020-03-01 18:48 | NUR ---
Patient s/p PRBC transfusion X2. Patient awake and alert, resting in bed comfortably denies any chills, pain, sob or discomfort. Lung sounds are clear. Call light within reach. Bed alarm on for safety.
--- NOTE | 2020-03-01 19:06 | NUR ---
Opening Shift Note Assumed care of patient after receiving report from ELLIOT Rojas. Patient is awake and alert with no S/S of distress/SOB or pain. Call light within reach, bed in lowest locked position x2 side rails, HOB semi fowlers. Instructed on POC and to call for assist PRN, will continue to monitor for changes Q1hr and PRN.
[2020-03-01 21:27] LABS: Hematocrit 25.6 % (41.0-53.0)
[2020-03-01 21:28] LABS: Hemoglobin 8.5 g/dL (13.5-17.5)
--- NOTE | 2020-03-02 01:24 | NUR ---
Patient c/o nausea. Patient stated he has intermittent nausea with dry heaves/gagging without emesis. Patient was given PRN Zofran for nausea. Patient stated that previously, he discontinued a home medication due to it making if nauseas and anxious. Patient stated he is currently getting the medication since being admitted to the hospital but can not remember which medication it is.
--- NOTE | 2020-03-02 01:45 | NUR ---
Patient requested to have IV fluids stopped for the night. Patient was educated on MD order for IV hydration. Patient verbalized understanding and continued to express desire to want IV fluids stopped so he "could get some sleep without worrying about the line while he sleeps". Patient was disconnected from IVF and will be reconnected in morning.
[2020-03-02 04:40] VITALS: BP 145/75
--- NOTE | 2020-03-02 06:25 | NUR ---
Patient reconnected to IV fluids per MD orders.
[2020-03-02] MEDS: ACETAMINOPHEN 500 MG TAB PO PRN (06:31)
--- NOTE | 2020-03-02 06:32 | NUR ---
Patient complains of pain in feet 6/10 and requesting Tylenol at this time. PRN Tylenol for Mild pain given. Will reassess.
[2020-03-02 06:45] LABS: Basophils # (auto) 0 10 ^3/uL (0-0.2); Basophils % (auto) 0.7 % (0.0-2.0); Eosinophils # (auto) 0.4 10 ^3/uL (0-0.8); Eosinophils % (auto) 5.8 % (0.0-7.0); Hematocrit 28.1 % (41.0-53.0); Hemoglobin 9.4 g/dL (13.5-17.5); Lymphocytes # (auto) 1.5 10 ^3/uL (0.4-5.4); Lymphocytes % (auto) 22.9 % (10.0-50.0); Mean Corpuscular Hemoglobin 30.3 pg (28.0-32.0); Mean Corpuscular Hgb Conc. 33.5 g/dL (32.0-36.0); Mean Corpuscular Volume 90.2 fL (80.0-100.0); Monocytes # (auto) 0.4 10 ^3/uL (0-1.3); Monocytes % (auto) 5.9 % (0.0-12.0); Neutrophils # (auto) 4.4 10 ^3/uL (1.6-8.6); Neutrophils % (auto) 64.7 % (37.0-80.0); Nucleated Red Blood Cells % 0.1 %; Platelet Count (auto) 241 10^3/uL (140-450); Red Blood Cells 3.11 10^6/uL (4.5-5.90); Red Cell Distribution Width 15.3 % (11.8-14.3); White Blood Cell 6.7 10^3/uL (4.4-10.8)
[2020-03-02 06:59] LABS: Albumin 2.6 g/dL (3.4-5.0); Calcium 8.2 mg/dL (8.5-10.1)
[2020-03-02 07:03] LABS: BUN/Creatinine Ratio 6.5; Bilirubin, Total 0.7 mg/dL (0.2-1.0); Total Protein 8.1 g/dL (6.4-8.2)
[2020-03-02] MEDS: metFORMIN HYDROCHLORIDE 850 MG TAB PO SCH (08:30)
[2020-03-02 09:00] VITALS: BP 152/73
[2020-03-02] MEDS: levoFLOXacin 500MG 100 ML IV SCH (09:28)
[2020-03-02] MEDS: NIFEdipine ER 30 MG TAB PO SCH (09:29)
[2020-03-02] MEDS: METOPROLOL TARTRATE 50 MG TAB PO SCH (09:29)
[2020-03-02] MEDS: PANTOPRAZOLE 40 MG TAB PO SCH (09:29)
[2020-03-02] MEDS: LINEZOLID 600MG/300ML 300 ML IV SCH (10:30)
[2020-03-02] MEDS: SODIUM CHLORIDE 0.9% 1,000 ML IV SCH (10:59)
[2020-03-02 11:57] VITALS: BP 156/81
--- NOTE | 2020-03-02 12:00 | NUR ---
Wound Care completed as per MD orders. Patient tolerated well.
[2020-03-02 15:12] VITALS: BP 156/81
[2020-03-02 16:57] VITALS: BP 145/79
--- NOTE | 2020-03-02 17:14 | NUR ---
Discharge instructions given as ordered. Encourage to follow up with PMD as instructed. All questions and concerns addressed. Patient verbalized understanding. Medication reconciliation form completed and copy given to patient. Home medications held in Pharmacy returned to patient. IV removed with catheter intact, pressure dressing applied. Patient taken to vehicle via own wheelchair with all personal belongings, accompanied by staff. No distress noted at time of departure.
== END 2020-03-02 17:10 | disposition home or self-care (01) | DRG 197 ==
LOC: ER 12:49 → OVERFLOW 12:50 → WEST WING 19:38
PROVIDERS: ADMIT Family Medicine; ATTEND Internal Medicine
PROC: 30233N1 Transfusion of Nonautologous Red Blood Cells into Peripheral Vein, Percutaneous Approach (ICD-10-PCS; principal; 2020-02-29)
DX: E11.52 Type 2 diabetes mellitus with diabetic peripheral angiopathy with gangrene (principal); L03.116 Cellulitis of left lower limb; E11.22 Type 2 diabetes mellitus with diabetic chronic kidney disease; N18.30 Chronic kidney disease, stage 3 unspecified; E11.65 Type 2 diabetes mellitus with hyperglycemia; E87.1 Hypo-osmolality and hyponatremia; E88.09 Other disorders of plasma-protein metabolism, not elsewhere classified; I96 Gangrene, not elsewhere classified; D64.9 Anemia, unspecified; E11.40 Type 2 diabetes mellitus with diabetic neuropathy, unspecified; E11.21 Type 2 diabetes mellitus with diabetic nephropathy; E66.9 Obesity, unspecified; I25.10 Atherosclerotic heart disease of native coronary artery without angina pectoris; E78.5 Hyperlipidemia, unspecified; E43 Unspecified severe protein-calorie malnutrition; Z82.49 Family history of ischemic heart disease and other diseases of the circulatory system; Z98.62 Peripheral vascular angioplasty status; Z68.38 Body mass index [BMI] 38.0-38.9, adult; Z82.3 Family history of stroke; Z83.3 Family history of diabetes mellitus; L89.629 Pressure ulcer of left heel, unspecified stage; L89.619 Pressure ulcer of right heel, unspecified stage; N17.9 Acute kidney failure, unspecified; Z79.84 Long term (current) use of oral hypoglycemic drugs
CPT/HCPCS: 36415; 71045; 80053; 81001; 82270; 82962; 83036; 85014; 85018; 85025; 85610; 85730; 86850; 86900; 86901; 86920; 87081; 93926; 96365; 96368; G0378; J1956; J2405

== ENCOUNTER 2020-06-20 12:38 | Outpatient (CLI) | payer MEDICARE, MEDICAID ==
[~2020-06-20] VITALS: Ht 172.7 cm; Wt 108.0 kg
[~2020-06-20 12:38] MED LIST: CLOP75TA28 PO; LISI-646 PO; METF-371 PO; METO-158 PO; NIFE1TAB30 PO
[2020-06-20 13:09] LABS: Basophils # (auto) 0.1 10 ^3/uL (0-0.2); Basophils % (auto) 0.7 % (0.0-2.0); Eosinophils # (auto) 0.3 10 ^3/uL (0-0.8); Eosinophils % (auto) 3.3 % (0.0-7.0); Hematocrit 30.7 % (41.0-53.0); Hemoglobin 10.1 g/dL (13.5-17.5); Lymphocytes # (auto) 1.2 10 ^3/uL (0.4-5.4); Lymphocytes % (auto) 14.6 % (10.0-50.0); Mean Corpuscular Hemoglobin 27.8 pg (28.0-32.0); Mean Corpuscular Hgb Conc. 32.9 g/dL (32.0-36.0); Mean Corpuscular Volume 84.5 fL (80.0-100.0); Monocytes # (auto) 0.5 10 ^3/uL (0-1.3); Monocytes % (auto) 5.5 % (0.0-12.0); Neutrophils # (auto) 6.4 10 ^3/uL (1.6-8.6); Neutrophils % (auto) 75.9 % (37.0-80.0); Platelet Count (auto) 257 10^3/uL (140-450); Red Blood Cells 3.63 10^6/uL (4.5-5.90); Red Cell Distribution Width 16.5 % (11.8-14.3); White Blood Cell 8.4 10^3/uL (4.4-10.8)
[2020-06-20 13:15] LABS: Urine Bacteria NONE SEEN /hpf (None Seen); Urine Blood 1+ /uL (Negative); Urine WBC 1 /hpf (0 - 3)
[2020-06-20 13:27] LABS: Albumin 3.4 g/dL (3.4-5.0); Potassium 4.4 mmol/L (3.5-5.1)
[2020-06-20 13:28] LABS: INR 0.99 (0.9-1.15); Partial Thromboplastin Time 29.2 sec (23.0-31.2)
[2020-06-20 13:30] LABS: BUN/Creatinine Ratio 15.7; Bilirubin, Total 0.4 mg/dL (0.2-1.0); Total Protein 9.3 g/dL (6.4-8.2)
[2020-06-23] MEDS ORDERED: ERGO1CAP12 PO (09:04)
[2020-06-23] MEDS ORDERED: CHLO4TAB10 PO (09:04)
== END 2020-06-20 12:54 | disposition home or self-care (01) ==
LOC: LAB 12:38 → EDSTATUS 06-25 10:02
PROVIDERS: ATTEND Podiatrist Foot & Ankle Surgery
DX: Z01.818 Encounter for other preprocedural examination (principal); M79.672 Pain in left foot; E11.9 Type 2 diabetes mellitus without complications; Z20.822 Contact with and (suspected) exposure to COVID-19; Z98.890 Other specified postprocedural states; Z79.899 Other long term (current) drug therapy; Z95.5 Presence of coronary angioplasty implant and graft; Z68.36 Body mass index [BMI] 36.0-36.9, adult
CPT/HCPCS: 36415; 80053; 81001; 85025; 85610; 85730; U0003